=== PATIENT | male | born 1980 | race Caucasian/White ===

== ENCOUNTER 2022-08-26 12:15 | Outpatient (CLI) | payer SELFPAY | END 2022-08-26 12:16 | disposition home or self-care (01) | LOC: AMB 09-26 22:55 | PROVIDERS: Visit Provider Family Medicine | DX: S61.411A Laceration without foreign body of right hand, initial encounter (principal); W26.0XXA Contact with knife, initial encounter; Y92.000 Kitchen of unspecified non-institutional (private) residence as the place of occurrence of the external cause | CPT/HCPCS: A0425; A0427 ==

== ENCOUNTER 2022-08-26 12:52 | Emergency (ER) | payer SELFPAY ==
[2022-08-26 12:54] VITALS: BP 147/104; PULSE 82; RESP 18; TEMP 36; O2SAT 98; BMI 30.3
[2022-08-26] MEDS: ACETAMINOPHEN 500 MG TABLET 1000 MG PO (13:54)
[2022-08-26] MEDS: cephALEXin 500 MG CAPSULE PO (13:55)
[2022-08-26 14:19] VITALS: BP 148/104; PULSE 82; RESP 14; O2SAT 95
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
== END 2022-08-26 14:47 | disposition home or self-care (01) ==
PROVIDERS: Emergency Provider Family Medicine
DX: S61.411A Laceration without foreign body of right hand, initial encounter (principal); W26.0XXA Contact with knife, initial encounter; Y93.89 Activity, other specified; Y92.010 Kitchen of single-family (private) house as the place of occurrence of the external cause; Y99.9 Unspecified external cause status
CPT/HCPCS: 12001; 99282; 99284; A9270